=== PATIENT | male | born 2000 | race Caucasian/White ===

== ENCOUNTER 2020-07-20 13:40 | Emergency (ER) | payer OTHER, SELFPAY ==
[2020-07-20 13:58] VITALS: BP 143/88; PULSE 75; RESP 18; TEMP 37.1; O2SAT 100; BMI 33.0
--- NOTE | 2020-07-20 14:05 | XRR_ITS ---
PROCEDURE INFORMATION: Exam: XR Chest Exam date and time: 07/20/2020 2:29 PM Age: 20 years old Clinical indication: Pain; Chest pressure; Additional info: Chest pain TECHNIQUE: Imaging protocol: XR of the chest. Views: 1 view. COMPARISON: No relevant prior studies available. FINDINGS: Lungs: Unremarkable. No consolidation. Pleural spaces: Unremarkable. No pleural effusion. No pneumothorax. Heart/Mediastinum: Unremarkable. No cardiomegaly. Bones/joints: No acute findings. XR/XR chest 1V portable [id number] IMPRESSION: No acute findings.
--- NOTE | 2020-07-20 14:05 | ECG_ITS ---
[facility] Test Date: 2020-07-20 Pat Name: Wu Rodriguez Department: Room: Gender: Male Medical Clerical Assistant: : [id number] Requested By: Camron Cuello Order Number: [id number] Mathur MD: Zander Samuels M.D. Measurements Intervals [place] Rate: 75 P: 73 NE: 138 QRS: 75 QRSD: 135 T: 32 QT: 398 QTc: 446 Interpretive Statements SINUS RHYTHM RIGHT BUNDLE BRANCH BLOCK [120+ ms QRS DURATION, UPRIGHT V1, 40+ ms S IN I/aVL/V4/V5/V6] No previous ECG available for comparison Electronically Signed On 07-20-2020 21:00:55 CDT by Zander Samuels M.D. [email or web address] medical specialty [id number]
--- NOTE | 2020-07-20 14:07 | ED_ITS ---
Documented by User: Camron Cuello MD 07/20/20 17:33 HPI - Chest Pain General: Chief Complaint: Chest Pain Stated Complaint: CP; radiates up neck; weakness Time Seen by Provider: 07/20/20 14:03 Source: patient and RN notes reviewed Limitations: no limitations History of Present Illness: HPI narrative: This patient is a 20-year-old male who presents to the emergency department with complaint of he believes he is having chest pain/angina. Patient states is tight and heavy on the left chest and radiating to his left shoulder. Patient does have a history of GERD issues and ate pickles this morning. But thinks this pain is different. Patient denies any family history. Patient states does smoke. Will do medical evaluation treat as needed MD complaint: chest pain and chest discomfort Onset (ago): hour(s) Prior episodes: No Onset: during rest Pain location: left chest Pain radiation: left shoulder Quality: tightness, aching and heaviness Exacerbating factors: nothing Associated symptoms: Deny abdominal pain, dyspnea, fever(s), nausea, palpitations or vomiting Review of Systems General: Reports: 10 or more systems reviewed and unremarkable except in HPI and below Const: Denies: fever(s), chills, body aches or fatigue Eyes: Denies: change in vision or blurry vision ENMT: Denies: throat pain, hoarseness or mouth pain Card: Reports: chest pain; Denies: palpitations, irregular heart rhythm, edema, swelling of feet/ankles or lightheadedness Resp: Denies: dyspnea, productive cough, non-productive cough, wheezing or pain on inspiration GI: Denies: abdominal pain, nausea or vomiting : Denies: flank pain, dysuria, urinary frequency, urinary urgency or urinary hesitancy Musc: Denies: neck pain, back pain, extremity pain, extremity swelling, joint pain, joint swelling, joint redness, joint warmth or limited range of motion Skin/Breast: Denies: rash, pruritus, erythema or skin tenderness Neuro: Denies: headache(s), numbness in extremities or weakness in extremities Psych: Denies: anxiety or depression PFS ED PFSH: Social History Current gender identity: Male Physical Exam Const: COMMON NORMALS: no acute distress, average body habitus, patient oriented x3, no limitations, healthy appearing, alert and well nourished HENMT: COMMON NORMALS: normocephalic, atraumatic, hearing grossly normal bilaterally, external ears normal, EAC's normal, TM's normal bilaterally, Normal external nose present, Normal nasal mucous membranes and turbinates present, moist oral mucous membranes, oropharynx normal, dentition normal and gingiva normal HEAD & SCALP: normocephalic and atraumatic NOSE: Normal external nose present and Normal nasal mucous membranes and turbinates present EXTERNAL EAR: Yes external ears normal EXTERNAL AUDITORY CANAL: EAC's normal TYMPANIC MEMBRANE: TM's normal bilaterally Neck/C-Spine: COMMON NORMALS: full ROM, no lymphadenopathy, supple, no meningeal signs, no JVD, Thyroid normal and No carotid bruits THYROID: Thyroid normal Chest: COMMONS NORMALS: normal inspection of the chest, normal palpation of entire chest wall, normal inspection of the breasts and normal palpation of the breasts Breast/axilla inspection: Yes normal inspection of the breasts BREAST/AXILLA PALPATION: Yes normal palpation of the breasts Resp: COMMON NORMALS: normal respiratory effort, No retractions, No use of accessory muscles, clear to auscultation bilaterally and percussion normal AUSCULTATION: clear to auscultation bilaterally PERCUSSION: percussion normal Cardio: COMMON NORMALS: no JVD, regular rate, regular rhythm, S1 normal heart sound present, S2 normal heart sound present, No gallops present (Cardio), No clicks present (Cardio), No murmurs present (Cardio), No rub (Cardio) and Peripheral pulses 2+ throughout RATE: regular rate RHYTHM: regular rhythm HEART SOUNDS: S1 normal heart sound present and S2 normal heart sound present PERIPHERAL PULSES: Peripheral pulses 2+ throughout GI: COMMON NORMALS: Normal to inspection, nondistended, normoactive bowel sounds present, Soft to palpation, non-tender, No hepatosplenomegaly present, no masses and no bruits PALPATION: Yes Soft to palpation and Yes No hepatosplenomegaly present : COMMON NORMALS: Yes no CVA tenderness BLADDER/KIDNEY EXAM: Yes no CVA tenderness Back/Pelvis: COMMON NORMALS: no CVA tenderness, thoracic and lumbar spine normal to inspection, no thoracic nor lumbar tenderness, thoraco-lumbar ROM normal and straight leg raise negative bilaterally Extremity: COMMON NORMALS: normal to inspection, full ROM, capillary refill normal, no joint enlargement, no clubbing, cyanosis or edema, no calf tenderness and no pedal edema Neuro: COMMON NORMALS: patient oriented x3 SENSORIUM/ORIENTATION: Yes alert MENINGEAL SIGNS: Yes no meningeal signs Course Consultations: Consultation #1: Care will be transferred to Dr. Wilder for shift change Time: 17:33 Vital Signs: Vital signs: Vital Signs Temperature 98.7 F 07/20/20 13:58 Pulse Rate 87 07/20/20 19:00 Respiratory Rate 22 H 07/20/20 19:00 Blood Pressure 149/78 07/20/20 19:00 Pulse Oximetry 98 07/20/20 19:00 MDM - Chest Pain Lab Data: Labs: Lab Results 07/20/20 07/20/20 07/20/20 Range/Units 15:00 15:00 15:00 WBC 5.2 (4.5-13.0) 10^3/ uL RBC 4.62 (4.1-5.3) 10^6/u L Hgb 14.3 (11.7-16.6) g/dL Hct 41.7 L (42.0-52.0) % MCV 90.3 (80-94) fL MCH 31.0 (28.0-34.0) pg MCHC 34.3 (30.0-36.0) g/dL RDW 12.2 (12.1-15.1) % Plt Count 274 (130-400) 10^3/c mm MPV 10.0 (7.4-10.4) fL Neut % (Auto) 64.3 % Lymph % (Auto) 26.7 % Edmunds % (Auto) 7.1 % Eos % (Auto) 1.3 % Baso % (Auto) 0.4 % Neut # (Auto) 3.34 (1.8-8.0) 10^3/u L Lymph # (Auto) 1.4 L (1.5-6.5) 10^3/u L Edmunds # (Auto) 0.4 (0.2-0.9) 10^3/u L Eos # (Auto) 0.1 (0.0-0.8) 10^3/u L Baso # (Auto) 0.0 (0.0-0.1) 10^3/u L Nucleated RBC % (a uto) 0 % Nucleated RBCs # 0.0 /100WBC PT (12.1-14.9) SECO NDS INR (0.8-1.2) APTT (23.9-36.7) SECO NDS Sodium Cancelled Potassium Cancelled Chloride Cancelled Carbon Dioxide Cancelled Anion Gap Cancelled BUN Cancelled Creatinine Cancelled GFR Calculation Cancelled Glucose Cancelled Calculated Osmolal ity Cancelled Calcium Cancelled Troponin T Baselin e Cancelled NT-Pro-B Natriuret Pep Cancelled Urine Color (Yellow) Urine Appearance (CLEAR) Urine pH (5-7) Ur Specific Gravit y (1.005-1.030) Urine Protein (Negative) Urine Glucose (UA) (Normal) Urine Ketones (Negative) Urine Blood (Negative) Urine Nitrate (Negative) Urine Bilirubin (Negative) Urine Urobilinogen (Negative) mg/dL Ur Leukocyte Chio ase (Negative) Urine Opiates Scre en (Negative) ng/mL Ur Barbiturates Sc reen (Negative) ng/mL Ur Phencyclidine S crn (Negative) ng/mL Ur Amphetamines Sc reen (Negative) ng/mL U Benzodiazepines Scrn (Negative) ng/mL Urine Cocaine Scre en (Negative) ng/mL U Marijuana (THC) Screen (Negative) ng/mL 07/20/20 07/20/20 07/20/20 Range/Units 15:00 15:00 18:40 WBC (4.5-13.0) 10^3/ uL RBC (4.1-5.3) 10^6/u L Hgb (11.7-16.6) g/dL Hct (42.0-52.0) % MCV (80-94) fL MCH (28.0-34.0) pg MCHC (30.0-36.0) g/dL RDW (12.1-15.1) % Plt Count (130-400) 10^3/c mm MPV (7.4-10.4) fL Neut % (Auto) % Lymph % (Auto) % Edmunds % (Auto) % Eos % (Auto) % Baso % (Auto) % Neut # (Auto) (1.8-8.0) 10^3/u L Lymph # (Auto) (1.5-6.5) 10^3/u L Edmunds # (Auto) (0.2-0.9) 10^3/u L Eos # (Auto) (0.0-0.8) 10^3/u L Baso # (Auto) (0.0-0.1) 10^3/u L Nucleated RBC % (a uto) % Nucleated RBCs # /100WBC PT (12.1-14.9) SECO NDS INR (0.8-1.2) APTT (23.9-36.7) SECO NDS Sodium 136 Potassium 3.9 Chloride 102 Carbon Dioxide 16 L Anion Gap 21.9 H BUN 7 Creatinine 0.6 L GFR Calculation 171.8 H Glucose 77 Calculated Osmolal ity 279 L Calcium 8.6 Troponin T Baselin e NT-Pro-B Natriuret Pep 65 Urine Color Yellow (Yellow) Urine Appearance Clear (CLEAR) Urine pH 7 (5-7) Ur Specific Gravit y 1.010 (1.005-1.030) Urine Protein Neg (Negative) Urine Glucose (UA) Norm (Normal) Urine Ketones Negative (Negative) Urine Blood Neg (Negative) Urine Nitrate Negative (Negative) Urine Bilirubin Neg (Negative) Urine Urobilinogen Norm (Negative) mg/dL Ur Leukocyte Chio ase Negative (Negative) Urine Opiates Scre en Negative (Negative) ng/mL Ur Barbiturates Sc reen Negative (Negative) ng/mL Ur Phencyclidine S crn Negative (Negative) ng/mL Ur Amphetamines Sc reen Negative (Negative) ng/mL U Benzodiazepines Scrn Negative (Negative) ng/mL Urine Cocaine Scre en Negative (Negative) ng/mL U Marijuana (THC) Screen Positive H (Negative) ng/mL 07/20/20 07/20/20 Range/Units 19:19 19:20 WBC (4.5-13.0) 10^3/ uL RBC (4.1-5.3) 10^6/u L Hgb (11.7-16.6) g/dL Hct (42.0-52.0) % MCV (80-94) fL MCH (28.0-34.0) pg MCHC (30.0-36.0) g/dL RDW (12.1-15.1) % Plt Count (130-400) 10^3/c mm MPV (7.4-10.4) fL Neut % (Auto) % Lymph % (Auto) % Edmunds % (Auto) % Eos % (Auto) % Baso % (Auto) % Neut # (Auto) (1.8-8.0) 10^3/u L Lymph # (Auto) (1.5-6.5) 10^3/u L Edmunds # (Auto) (0.2-0.9) 10^3/u L Eos # (Auto) (0.0-0.8) 10^3/u L Baso # (Auto) (0.0-0.1) 10^3/u L Nucleated RBC % (a uto) % Nucleated RBCs # /100WBC PT 13.60 (12.1-14.9) SECO NDS INR 1.01 (0.8-1.2) APTT 24.6 (23.9-36.7) SECO NDS Sodium Potassium Chloride Carbon Dioxide Anion Gap BUN Creatinine GFR Calculation Glucose Calculated Osmolal ity Calcium Troponin T Baselin e 6 NT-Pro-B Natriuret Pep Urine Color (Yellow) Urine Appearance (CLEAR) Urine pH (5-7) Ur Specific Gravit y (1.005-1.030) Urine Protein (Negative) Urine Glucose (UA) (Normal) Urine Ketones (Negative) Urine Blood (Negative) Urine Nitrate (Negative) Urine Bilirubin (Negative) Urine Urobilinogen (Negative) mg/dL Ur Leukocyte Chio ase (Negative) Urine Opiates Scre en (Negative) ng/mL Ur Barbiturates Sc reen (Negative) ng/mL Ur Phencyclidine S crn (Negative) ng/mL Ur Amphetamines Sc reen (Negative) ng/mL U Benzodiazepines Scrn (Negative) ng/mL Urine Cocaine Scre en (Negative) ng/mL U Marijuana (THC) Screen (Negative) ng/mL Discharge Plan Discharge Patient Disposition: Home Clinical Impression: Atypical chest pain Condition: Stable Prescriptions: New Naprosyn 500 mg tablet 500 mg PO BID PRN (Reason: pain) Qty: 20 RF: 0 No Action hydroxyzine pamoate [Vistaril] 50 mg capsule 50 mg PO BID RF: 0 quetiapine 25 mg tablet 25 mg PO DAILY RF: 0 clonazepam 0.5 mg tablet 0.5 mg PO DAILY RF: 0 hydrocortisone 1 % Cream See Rx Instructions .ROUTE .COMPLEX RF: 0 duloxetine 60 mg capsule,delayed release(DR/EC) 60 mg PO DAILY RF: 0 epinephrine See Rx Instructions .ROUTE .COMPLEX RF: 0 trazodone 50 mg tablet 50 mg PO BEDTIME RF: 0 Discharge Orders: Discharge ED (Routine); Ordered 07/20/20 Ordered By: Wolfgang Contreras Referrals: Everett Rojo MD [Family Provider] - 1-3 days Discharge Diet: Advance as tolerated Discharge Activity: Use walker/crutches as instructed Patient Instructions: Chest Pain (ED) Coding Level of Care Code ED Patcher Bowling Ball for Chg Fwd Exam Comprehensive Documented by User: Wolfgang Contreras MD 07/20/20 20:07 HPI - Chest Pain General: Chief Complaint: Chest Pain Stated Complaint: CP; radiates up neck; weakness Time Seen by Provider: 07/20/20 14:03 [facility] ED PFSH: Social History Current gender identity: Male Course Vital Signs: Vital signs: Vital Signs Temperature 98.7 F 07/20/20 13:58 Pulse Rate 87 07/20/20 19:00 Respiratory Rate 22 H 07/20/20 19:00 Blood Pressure 149/78 07/20/20 19:00 Pulse Oximetry 98 07/20/20 19:00 MDM - Chest Pain MDM Narrative: Medical decision making narrative: Patient presents for chest pain is atypical in nature. His x-ray along with blood work troponin EKG are all normal. He has no signs of pulmonary embolus or acute coronary syndrome. Patient is stable for discharge and is to follow-up his PCP in 2 to 4 days return if worsening. Lab Data: Labs: Lab Results 07/20/20 07/20/20 07/20/20 Range/Units 15:00 15:00 15:00 WBC 5.2 (4.5-13.0) 10^3/ uL RBC 4.62 (4.1-5.3) 10^6/u L Hgb 14.3 (11.7-16.6) g/dL Hct 41.7 L (42.0-52.0) % MCV 90.3 (80-94) fL MCH 31.0 (28.0-34.0) pg MCHC 34.3 (30.0-36.0) g/dL RDW 12.2 (12.1-15.1) % Plt Count 274 (130-400) 10^3/c mm MPV 10.0 (7.4-10.4) fL Neut % (Auto) 64.3 % Lymph % (Auto) 26.7 % Edmunds % (Auto) 7.1 % Eos % (Auto) 1.3 % Baso % (Auto) 0.4 % Neut # (Auto) 3.34 (1.8-8.0) 10^3/u L Lymph # (Auto) 1.4 L (1.5-6.5) 10^3/u L Edmunds # (Auto) 0.4 (0.2-0.9) 10^3/u L Eos # (Auto) 0.1 (0.0-0.8) 10^3/u L Baso # (Auto) 0.0 (0.0-0.1) 10^3/u L Nucleated RBC % (a uto) 0 % Nucleated RBCs # 0.0 /100WBC PT (12.1-14.9) SECO NDS INR (0.8-1.2) APTT (23.9-36.7) SECO NDS Sodium Cancelled Potassium Cancelled Chloride Cancelled Carbon Dioxide Cancelled Anion Gap Cancelled BUN Cancelled Creatinine Cancelled GFR Calculation Cancelled Glucose Cancelled Calculated Osmolal ity Cancelled Calcium Cancelled Troponin T Baselin e Cancelled NT-Pro-B Natriuret Pep Cancelled Urine Color (Yellow) Urine Appearance (CLEAR) Urine pH (5-7) Ur Specific Gravit y (1.005-1.030) Urine Protein (Negative) Urine Glucose (UA) (Normal) Urine Ketones (Negative) Urine Blood (Negative) Urine Nitrate (Negative) Urine Bilirubin (Negative) Urine Urobilinogen (Negative) mg/dL Ur Leukocyte Chio ase (Negative) Urine Opiates Scre en (Negative) ng/mL Ur Barbiturates Sc reen (Negative) ng/mL Ur Phencyclidine S crn (Negative) ng/mL Ur Amphetamines Sc reen (Negative) ng/mL U Benzodiazepines Scrn (Negative) ng/mL Urine Cocaine Scre en (Negative) ng/mL U Marijuana (THC) Screen (Negative) ng/mL 07/20/20 07/20/20 07/20/20 Range/Units 15:00 15:00 18:40 WBC (4.5-13.0) 10^3/ uL RBC (4.1-5.3) 10^6/u L Hgb (11.7-16.6) g/dL Hct (42.0-52.0) % MCV (80-94) fL MCH (28.0-34.0) pg MCHC (30.0-36.0) g/dL RDW (12.1-15.1) % Plt Count (130-400) 10^3/c mm MPV (7.4-10.4) fL Neut % (Auto) % Lymph % (Auto) % Edmunds % (Auto) % Eos % (Auto) % Baso % (Auto) % Neut # (Auto) (1.8-8.0) 10^3/u L Lymph # (Auto) (1.5-6.5) 10^3/u L Edmunds # (Auto) (0.2-0.9) 10^3/u L Eos # (Auto) (0.0-0.8) 10^3/u L Baso # (Auto) (0.0-0.1) 10^3/u L Nucleated RBC % (a uto) % Nucleated RBCs # /100WBC PT (12.1-14.9) SECO NDS INR (0.8-1.2) APTT (23.9-36.7) SECO NDS Sodium 136 Potassium 3.9 Chloride 102 Carbon Dioxide 16 L Anion Gap 21.9 H BUN 7 Creatinine 0.6 L GFR Calculation 171.8 H Glucose 77 Calculated Osmolal ity 279 L Calcium 8.6 Troponin T Baselin e NT-Pro-B Natriuret Pep 65 Urine Color Yellow (Yellow) Urine Appearance Clear (CLEAR) Urine pH 7 (5-7) Ur Specific Gravit y 1.010 (1.005-1.030) Urine Protein Neg (Negative) Urine Glucose (UA) Norm (Normal) Urine Ketones Negative (Negative) Urine Blood Neg (Negative) Urine Nitrate Negative (Negative) Urine Bilirubin Neg (Negative) Urine Urobilinogen Norm (Negative) mg/dL Ur Leukocyte Chio ase Negative (Negative) Urine Opiates Scre en Negative (Negative) ng/mL Ur Barbiturates Sc reen Negative (Negative) ng/mL Ur Phencyclidine S crn Negative (Negative) ng/mL Ur Amphetamines Sc reen Negative (Negative) ng/mL U Benzodiazepines Scrn Negative (Negative) ng/mL Urine Cocaine Scre en Negative (Negative) ng/mL U Marijuana (THC) Screen Positive H (Negative) ng/mL 07/20/20 07/20/20 Range/Units 19:19 19:20 WBC (4.5-13.0) 10^3/ uL RBC (4.1-5.3) 10^6/u L Hgb (11.7-16.6) g/dL Hct (42.0-52.0) % MCV (80-94) fL MCH (28.0-34.0) pg MCHC (30.0-36.0) g/dL RDW (12.1-15.1) % Plt Count (130-400) 10^3/c mm MPV (7.4-10.4) fL Neut % (Auto) % Lymph % (Auto) % Edmunds % (Auto) % Eos % (Auto) % Baso % (Auto) % Neut # (Auto) (1.8-8.0) 10^3/u L Lymph # (Auto) (1.5-6.5) 10^3/u L Edmunds # (Auto) (0.2-0.9) 10^3/u L Eos # (Auto) (0.0-0.8) 10^3/u L Baso # (Auto) (0.0-0.1) 10^3/u L Nucleated RBC % (a uto) % Nucleated RBCs # /100WBC PT 13.60 (12.1-14.9) SECO NDS INR 1.01 (0.8-1.2) APTT 24.6 (23.9-36.7) SECO NDS Sodium Potassium Chloride Carbon Dioxide Anion Gap BUN Creatinine GFR Calculation Glucose Calculated Osmolal ity Calcium Troponin T Baselin e 6 NT-Pro-B Natriuret Pep Urine Color (Yellow) Urine Appearance (CLEAR) Urine pH (5-7) Ur Specific Gravit y (1.005-1.030) Urine Protein (Negative) Urine Glucose (UA) (Normal) Urine Ketones (Negative) Urine Blood (Negative) Urine Nitrate (Negative) Urine Bilirubin (Negative) Urine Urobilinogen (Negative) mg/dL Ur Leukocyte Chio ase (Negative) Urine Opiates Scre en (Negative) ng/mL Ur Barbiturates Sc reen (Negative) ng/mL Ur Phencyclidine S crn (Negative) ng/mL Ur Amphetamines Sc reen (Negative) ng/mL U Benzodiazepines Scrn (Negative) ng/mL Urine Cocaine Scre en (Negative) ng/mL U Marijuana (THC) Screen (Negative) ng/mL EKG Data^: EKG 1: Attestation: I personally reviewed and interpreted this EKG as follows: EKG interpretation date: 07/20/20 EKG interpretation time: 17:57 Interpretation: nsr hr [address] or t wave abnormalities qrs 135 qtc 427 Discharge Plan Discharge Patient Disposition: Home Clinical Impression: Atypical chest pain Condition: Stable Prescriptions: New Naprosyn 500 mg tablet 500 mg PO BID PRN (Reason: pain) Qty: 20 RF: 0 No Action hydroxyzine pamoate [Vistaril] 50 mg capsule 50 mg PO BID RF: 0 quetiapine 25 mg tablet 25 mg PO DAILY RF: 0 clonazepam 0.5 mg tablet 0.5 mg PO DAILY RF: 0 hydrocortisone 1 % Cream See Rx Instructions .ROUTE .COMPLEX RF: 0 duloxetine 60 mg capsule,delayed release(DR/EC) 60 mg PO DAILY RF: 0 epinephrine See Rx Instructions .ROUTE .COMPLEX RF: 0 trazodone 50 mg tablet 50 mg PO BEDTIME RF: 0 Discharge Orders: Discharge ED (Routine); Ordered 07/20/20 Ordered By: Wolfgang Contreras Referrals: Everett Rojo MD [Family Provider] - 1-3 days Discharge Diet: Advance as tolerated Discharge Activity: Use walker/crutches as instructed Patient Instructions: Chest Pain (ED) Coding Level of Care Code ED Patcher Bowling Ball for Chg Fwd Exam Comprehensive
[2020-07-20] MEDS: ondansetron 2 mg/ML SDV 2 mL 4 MG IVP (14:44)
[2020-07-20] MEDS: sodium chloride 0.9% 500 ML 999 ML IV (14:45)
[2020-07-20] MEDS: lidocaine 2% viscous 15 ML, aluminum-mag hydrox-simethicon 30 ML, sucralfate oral liq 1 GM PO (14:46)
[2020-07-20 15:22] LABS: Add Urine Microscopic? NO; Charge for UA Resulting for Rev
[2020-07-20 15:25] LABS: Basophils % 0.4 %; Eosinophils # 0.1 10^3/uL (0.0-0.8); Eosinophils % 1.3 %; Hematocrit 41.7 % (42.0-52.0); Hemoglobin 14.3 g/dL (11.7-16.6); Lymphocytes # 1.4 10^3/uL (1.5-6.5); Lymphocytes % 26.7 %; Mean Corpuscular HGB Conc 34.3 g/dL (30.0-36.0); Mean Corpuscular Volume 90.3 fL (80-94); Monocytes # 0.4 10^3/uL (0.2-0.9); Monocytes % 7.1 %; Neutrophils # 3.34 10^3/uL (1.8-8.0); Neutrophils % 64.3 %; Nucleated Red Blood Cells % 0 %; Platelet Count 274 10^3/cmm (130-400); Red Blood Count 4.62 10^6/uL (4.1-5.3); Red Cell Distribution Width 12.2 % (12.1-15.1); White Blood Count 5.2 10^3/uL (4.5-13.0)
[2020-07-20 15:48] LABS: Amphetamines Screen Urine Negative (Negative); Barbiturates Screen Urine Negative (Negative); Benzodiazepines Screen Urine Negative (Negative); Cocaine Screen Urine Negative (Negative); Opiate Screen Urine Negative (Negative); PCP Screen Urine Negative (Negative); THC Screen Urine Positive (Negative)
[2020-07-20 15:52] LABS: Bilirubin Urine Neg (Negative); Blood Urine Neg (Negative); Glucose Urine UA Norm (Normal); Ketones Urine Negative (Negative); Leukocyte Esterase Urine Negative (Negative); Nitrate Urine Negative (Negative); Protein Urine Neg (Negative); Urine Appearance Clear (CLEAR); Urine Color Yellow (Yellow); Urobilinogen Urine Norm (Negative); pH Urine 7 (5-7)
[2020-07-20 18:19] VITALS: BP 160/102; PULSE 98; RESP 20; O2SAT 97
[2020-07-20 19:00] VITALS: BP 149/78; PULSE 87; RESP 22; O2SAT 98
[2020-07-20 19:28] LABS: INR 1.01 (0.8-1.2); Partial Thromboplastin Time 24.6 SECONDS (23.9-36.7)
[2020-07-20 19:42] LABS: Troponin(5th) Baseline 6 ng/L (0-15)
[2020-07-20 19:54] LABS: Blood Urea Nitrogen 7 mg/dL (6-20); Calcium 8.6 mg/dL (8.5-10.5); Carbon Dioxide 16 mmol/L (22-29); Chloride 102 mmol/L (98-107); Glomerular Filtration Rate 171.8 mL/min (90-130); Glucose 77 mg/dL (65-115); NT Pro B Type Natriuretic Pept 65 pg/mL (0-125); Osmolality Calculated 279 mOsm/kg (285-295); Sodium 136 mmol/L (136-145)
[2020-07-20 20:00] LABS: Anion Gap 21.9 (5-19); Potassium 3.9 mmol/L (3.5-5.1)
[2020-07-20 20:38] VITALS: BP 145/71; PULSE 90; RESP 17; O2SAT 99
== END 2020-07-20 20:35 | disposition home or self-care (01) ==
PROVIDERS: Emergency Medicine; Emergency Provider Emergency Medicine; Family Provider Family Medicine
DX: R07.89 Other chest pain (principal)
CPT/HCPCS: 71045; 80048; 80306; 81003; 83880; 84484; 85025; 85610; 85730; 93005; 96374; 99284; J2405; J7040

== ENCOUNTER 2020-08-20 08:22 | Emergency (ER) | payer OTHER, SELFPAY ==
--- NOTE | 2020-08-20 08:25 | CT_ITS ---
WS: [id number] CT ABDOMEN AND PELVIS NONCONTRAST HISTORY: flank pain TECHNIQUE: Imaging performed through the abdomen and pelvis. Coronal and sagittal reformats are submi tted. All CT scans at [facility] use at least one of these dose optimization techniques: automated exposure control; mA and/or kV adjustment per patient size (includes targeted exams where d ose is matched to clinical indication); or iterative reconstruction. DLP: 2134.99 mGy.cm COMPARISON: 10/18/2015 Quality of this examination is limited by motion. Lower thorax: Mild haziness and groundglass attenuation at the lung bases without a focal consolidati on. Heart appears mildly prominent. Liver: Normal size liver. No mass or bile duct dilatation. Gallbladder: Normal gallbladder. Pancreas: Normal size and attenuation. Normal pancreatic duct. No pancreatitis or mass. Spleen: Normal. Adrenal glands: Normal. No mass. Right kidney: Normal size kidney with no mass or hydronephrosis. Left kidney: Mildly enlarged LEFT kidney with mild LEFT hydroureteronephrosis secondary to a 4 mm radha cification at the UV junction. This calcification is nearly extruded into the bladder. Aorta: Normal abdominal aorta, no aneurysm or atherosclerosis. No free fluid, intraperitoneal air or significant lymphadenopathy. GI tract: The appendix is not identified and may have been removed. No obstruction. Abdominal wall: Negative. No hernia. Pelvis: Normally distended urinary bladder. 4 mm calcification is noted at the LEFT UV junction. Osseous structures: Unremarkable. CT/CT kidney stone [id number] IMPRESSION: 1. Mild LEFT hydroureteronephrosis secondary to 4 mm calcification at the UV j unction. 2. Appendix not identified. Likely prior appendectomy. 3. Study compromised by motion artifact.
[2020-08-20 08:47] VITALS: PULSE 79; RESP 22; TEMP 37; O2SAT 99; BMI 31.5
[2020-08-20 08:56] VITALS: BP 141/75; PULSE 70; RESP 18; O2SAT 100
[2020-08-20] MEDS: sodium chloride 0.9% 1,000 ML 999 ML IV (09:00)
[2020-08-20] MEDS: ketorolac 30 mg/mL INJ IVP (09:00)
[2020-08-20] MEDS: ondansetron 2 mg/ML SDV 2 mL 4 MG IVP (09:00)
[2020-08-20 09:08] LABS: Basophils % 0.5 %; Eosinophils # 0.1 10^3/uL (0.0-0.8); Eosinophils % 1.4 %; Hematocrit 43.5 % (42.0-52.0); Hemoglobin 15.3 g/dL (11.7-16.6); Lymphocytes # 1.6 10^3/uL (1.5-6.5); Mean Corpuscular HGB Conc 35.2 g/dL (30.0-36.0); Mean Corpuscular Hemoglobin 30.9 pg (28.0-34.0); Mean Corpuscular Volume 87.9 fL (80-94); Mean Platelet Volume 10.1 fL (7.4-10.4); Monocytes # 0.4 10^3/uL (0.2-0.9); Monocytes % 9.5 %; Neutrophils # 2.23 10^3/uL (1.8-8.0); Neutrophils % 51.4 %; Nucleated Red Blood Cells % 0 %; Platelet Count 255 10^3/cmm (130-400); Red Blood Count 4.95 10^6/uL (4.1-5.3); Red Cell Distribution Width 11.5 % (12.1-15.1); White Blood Count 4.3 10^3/uL (4.5-13.0)
--- NOTE | 2020-08-20 09:18 | W.ED.MALEGU ---
HPI - Male Genitourinary General: Chief complaint: Urogenital-Male Stated complaint: back pain,possible kidney stone Time Seen by Provider: 08/20/20 08:24 Source: patient Mode of arrival: wheelchair Limitations: no limitations History of Present Illness: HPI Narrative: 20 yo male patient presents to ER screaming in pain. Pt states he is having sharp stabbing pains to left flank area. Pt denies fever. Pt c/o nausea with no vomiting. Pt denies history of kidney stones pt has had appendectomy. Associated symptoms: Reports nausea; Deny dysuria, hematuria or vomiting Review of Systems Const: Denies: fever(s), chills, body aches, change in appetite, change in weight, fatigue, malaise or diaphoresis Eyes: Denies: change in vision, blurry vision, blind spots, photophobia, eye discomfort, eye discharge, eye redness, floaters or seeing flashes ENMT: Denies: throat pain, uvular edema, enlarged tonsils, odynophagia, hoarseness, mouth pain, swelling of lips/tongue, oral sores, bleeding gums, dental pain, dry mouth, ear or mastoid pain, ear discharge, change in hearing, tinnitus, disequilibrium, nasal discharge, nasal congestion, post nasal drip or sinus pain Card: Denies: chest pain, palpitations, irregular heart rhythm, edema, swelling of feet/ankles, lightheadedness, syncope, pre-syncope, dyspnea on exertion, orthopnea, leg pain with exertion or acrocyanosis Resp: Denies: dyspnea, productive cough, non-productive cough, wheezing, stridor, pain on inspiration, change in phlegm color, hemoptysis or chest congestion GI: Reports: nausea; Denies: abdominal pain, vomiting, hematemesis, dysphagia, diarrhea, constipation, GI cramping, change in bowel habits or rectal pain : Reports: flank pain; Denies: dysuria, urinary frequency, urinary urgency, urinary hesitancy or hematuria Musc: Denies: neck pain, back pain, extremity pain, extremity swelling, joint pain, joint swelling, joint redness, joint warmth or deformity Skin/Breast: Denies: rash, pruritus, erythema, sores, new lesions, changes in skin color or dry skin Neuro: Denies: headache(s), numbness in extremities, weakness in extremities, sensory changes, lack of coordination, difficulty walking, frequent falls, dizziness, vertigo, confusion, behavioral changes, Slurred speech present, difficulty communicating thoughts or seizure-like activity Psych: Denies: anxiety, depression, suicidal ideation or homicidal ideation Endo: Denies: polyuria, polydipsia, tired all the time, cold intolerance, excessive sweating, flushing, hot flashes or heat intolerance Bharathi/Lymph: Denies: easy bruising, easy bleeding, petechiae, purpura, enlarged lymph nodes or tender lymph nodes All/Imm: Denies: urticaria, throat swelling, tongue swelling, facial swelling, acute wheezing or itchy eyes PFSH ED PFSH: Social History Current gender identity: Male Physical Exam Const: COMMON NORMALS: no acute distress, patient oriented x3, healthy appearing, alert and well nourished GENERAL APPEARANCE: cooperative, comfortable, well kempt and well developed; not ill appearing ORIENTATION/CONSCIOUSNESS: Yes awake, Yes oriented to person, Yes oriented to place and Yes oriented to time HENMT: COMMON NORMALS: normocephalic, atraumatic, hearing grossly normal bilaterally, external ears normal, EAC's normal, TM's normal bilaterally, Normal external nose present, Normal nasal mucous membranes and turbinates present and moist oral mucous membranes HEAD & SCALP: normal to inspection, normocephalic and atraumatic FACE & SINUS: normal facial exam, sinuses nontender and face symmetric NOSE: Normal external nose present, Normal nares present, Normal nasal mucous membranes and turbinates present, No nasal discharge present and Abnormal external nose present EXTERNAL EAR: Yes external ears normal and Yes mastoids normal EXTERNAL AUDITORY CANAL: EAC's normal TYMPANIC MEMBRANE: TM's normal bilaterally MOUTH: Normal oral and palatal mucosa present, lip normal, tongue normal and Normal salivary glands and ducts present THROAT: no uvular edema Eye: COMMON NORMALS: Equal, round and reactive pupils present, EOMs intact bilaterally, conjunctivae normal, no scleral icterus and no papilledema GENERAL EYE: appearance normal, both eyes and all related structures EYELID: eyelids normal CONJUNCTIVA: Yes conjunctivae normal SCLERA: sclerae normal CORNEA: Yes corneas normal PUPIL: Yes Equal, round and reactive pupils present DIRECT OPHTHALMOSCOPY: Yes no papilledema Neck/C-Spine: COMMON NORMALS: full ROM, no lymphadenopathy, supple, no meningeal signs, no JVD and Thyroid normal GENERAL: Yes normal visual inspection and Yes trachea midline THYROID: Thyroid normal CERVICAL SPINE: Yes cervical ROM normal Lymph: LYMPHATIC: no lymphadenopathy noted and no lymphedema noted Chest: COMMONS NORMALS: normal inspection of the chest and normal palpation of entire chest wall Resp: COMMON NORMALS: normal respiratory effort, No retractions, No use of accessory muscles and clear to auscultation bilaterally EFFORT & INSPECTION: Yes able to speak in complete sentences and Yes symmetric chest movement AUSCULTATION: clear to auscultation bilaterally Cardio: COMMON NORMALS: no JVD, regular rate and regular rhythm RATE: regular rate RHYTHM: regular rhythm GI: COMMON NORMALS: Normal to inspection, nondistended, normoactive bowel sounds present, Soft to palpation, non-tender, No hepatosplenomegaly present, no masses and no bruits INSPECTION: Yes normal to inspection AUSCULTATION: Yes normoactive bowel sounds PALPATION: Yes Soft to palpation and Yes No hepatosplenomegaly present PERCUSSION: normal to percussion RECTAL EXAM: Yes deferred : COMMON NORMALS: Yes no CVA tenderness BLADDER/KIDNEY EXAM: Yes no CVA tenderness Back/Pelvis: COMMON NORMALS: no CVA tenderness, thoracic and lumbar spine normal to inspection, no thoracic nor lumbar tenderness, thoraco-lumbar ROM normal and straight leg raise negative bilaterally THORACIC SPINE/UPPER BACK: Yes normal to inspection LUMBAR SPINE/LOWER BACK: Yes normal to inspection Extremity: COMMON NORMALS: normal to inspection, full ROM and capillary refill normal GENERAL: Yes normal exam except as noted Neuro: COMMON NORMALS: patient oriented x3, CN's II-XII intact bilaterally, moves all extremities, no focal motor deficits, no sensory deficits noted, deep tendon reflexes 2+ bilaterally and gait normal SENSORIUM/ORIENTATION: Yes alert, Yes oriented to person, Yes oriented to place and Yes oriented to time MENINGEAL SIGNS: Yes no meningeal signs CRANIAL NERVES: Yes CN normal except as noted SPEECH: speech normal GAIT: Yes Normal gait present SENSORY EXAM: Yes extremities Psych: COMMON NORMALS: mental status grossly normal, Normal thought process present, cooperative, normal affect, speech normal, activity/motor behavior normal, denies hallucinations, denies homicidal ideation and denies suicidal ideation APPEARANCE: Yes grossly normal and Yes well kempt ATTITUDE: Yes calm ACTIVITY/MOTOR BEHAVIOR: Yes appropriate eye contact SPEECH: Yes normal speech THOUGHT PROCESS: Normal thought process present THOUGHT CONTENT: Yes Normal thought content present ATTENTION/CONCENTRATION: Yes attention grossly intact MEMORY/COGNITION: Yes memory grossly intact INSIGHT: Good insight present (Psych) JUDGEMENT: Good judgement present (Psych) Skin: COMMON NORMALS: no rashes or lesions noted, no wounds, turgor normal, no jaundice, no petechiae and no mottling GENERAL SKIN EXAM: no rashes or lesions noted and turgor normal Course Vital Signs: Vital signs: Vital Signs Temperature 98.6 F 08/20/20 08:47 Pulse Rate 79 08/20/20 10:01 Respiratory Rate 17 08/20/20 10:01 Blood Pressure 113/56 08/20/20 10:01 Pulse Oximetry 99 08/20/20 10:01 MDM - Male MDM Narrative: Medical decision making narrative: Pt is well appearing non toxic and is screaming in pain at triage. CT abd pelvis reveals CT ABDOMEN AND PELVIS NONCONTRAST HISTORY: flank pain TECHNIQUE: Imaging performed through the abdomen and pelvis. Coronal and sagittal reformats are submitted. All CT scans at [facility] use at least one of these dose optimization techniques: automated exposure control; mA and/or kV adjustment per patient size (includes targeted exams where dose is matched to clinical indication); or iterative reconstruction. DLP: 2134.99 mGy.cm COMPARISON: 10/18/2015 Quality of this examination is limited by motion. Lower thorax: Mild haziness and groundglass attenuation at the lung bases without a focal consolidation. Heart appears mildly prominent. Liver: Normal size liver. No mass or bile duct dilatation. Gallbladder: Normal gallbladder. Pancreas: Normal size and attenuation. Normal pancreatic duct. No pancreatitis or mass. Spleen: Normal. Adrenal glands: Normal. No mass. Right kidney: Normal size kidney with no mass or hydronephrosis. Left kidney: Mildly enlarged LEFT kidney with mild LEFT hydroureteronephrosis secondary to a 4 mm calcification at the UV junction. This calcification is nearly extruded into the bladder. Aorta: Normal abdominal aorta, no aneurysm or atherosclerosis. No free fluid, intraperitoneal air or significant lymphadenopathy. GI tract: The appendix is not identified and may have been removed. No obstruction. Abdominal wall: Negative. No hernia. Pelvis: Normally distended urinary bladder. 4 mm calcification is noted at the LEFT UV junction. Osseous structures: Unremarkable. CT/CT kidney stone [id number] IMPRESSION: 1. Mild LEFT hydroureteronephrosis secondary to 4 mm calcification at the UV junction. 2. Appendix not identified. Likely prior appendectomy. 3. Study compromised by motion artifact. Pt was given Toradol and Zofran and had clinical improvement. Pt was given 1 liter of NS IV. Labs reveal no concerning findings. I will plan on sending patient home with short course of pain meds and antimetic and have follow up with Urology. Return precautions advised home care reviewed. Pt is tolerating food and po fluids. Lab Data: Labs: Lab Results 08/20/20 08/20/20 08/20/20 Range/Units 08:53 08:53 09:55 WBC 4.3 L (4.5-13.0) 10^3/ uL RBC 4.95 (4.1-5.3) 10^6/u L Hgb 15.3 (11.7-16.6) g/dL Hct 43.5 (42.0-52.0) % MCV 87.9 (80-94) fL MCH 30.9 (28.0-34.0) pg MCHC 35.2 (30.0-36.0) g/dL RDW 11.5 L (12.1-15.1) % Plt Count 255 (130-400) 10^3/c mm MPV 10.1 (7.4-10.4) fL Neut % (Auto) 51.4 % Lymph % (Auto) 37.0 % [place] % (Auto) 9.5 % Eos % (Auto) 1.4 % Baso % (Auto) 0.5 % Neut # (Auto) 2.23 (1.8-8.0) 10^3/u L Lymph # (Auto) 1.6 (1.5-6.5) 10^3/u L [place] # (Auto) 0.4 (0.2-0.9) 10^3/u L Eos # (Auto) 0.1 (0.0-0.8) 10^3/u L Baso # (Auto) 0.0 (0.0-0.1) 10^3/u L Nucleated RBC % (a uto) 0 % Nucleated RBCs # 0.0 /100WBC Sodium 139 (136-145) mmol/L Potassium 4.0 (3.5-5.1) mmol/L Chloride 103 (98-107) mmol/L Carbon Dioxide 23 (22-29) mmol/L Anion Gap 17.0 (5-19) BUN 10 (6-20) mg/dL Creatinine 1.0 (0.7-1.2) mg/dL GFR Calculation 95.3 (90-130) mL/min Glucose 117 H (65-115) mg/dL Calculated Osmolal ity 288 (285-295) mOsm/k g Calcium 9.4 (8.5-10.5) mg/dL Total Bilirubin 0.9 (0.15-1.2) mg/dL AST 28 (0-40) U/L ALT 35 (0-41) U/L Alkaline Phosphata se 81 (40-130) IU/L Total Protein 7.4 (6.6-8.7) g/dL Albumin 4.6 (3.5-5.2) g/dL Globulin 2.8 (1.3-4.6) g/dL Urine Color Brown (Yellow) Urine Appearance Cloudy (CLEAR) Urine pH 8 H (5-7) Ur Specific Gravit y 1.015 (1.005-1.030) Urine Protein 1+ H (Negative) Urine Glucose (UA) Norm (Normal) Urine Ketones 1+ H (Negative) Urine Blood 3+ H (Negative) Urine Nitrate Negative (Negative) Urine Bilirubin Neg (Negative) Prot Sulfosalicyli c Acd Positive (Negative) Urine Urobilinogen Norm (Negative) mg/dL Ur Leukocyte [place] ase Negative (Negative) Urine RBC >100 H (0-2) /hpf Urine WBC None (0-5) /hpf Ur Squamous Epith Cells 0-4 H (0-5) /hpf Amorphous Sediment Not Reportable Urine Bacteria 2+ H (NONE) /hpf Discharge Plan Discharge Patient Disposition: Home Clinical Impression: Kidney stone on left side Condition: Stable Prescriptions: New hydrocodone-acetaminophen 5-325 mg tablet 1 tab PO Q6H PRN (Reason: pain) Qty: 14 RF: 0 Zofran 4 mg tablet 4 mg PO TID 3 Days Qty: 9 RF: 0 No Action hydroxyzine pamoate [Vistaril] 50 mg capsule 50 mg PO BID RF: 0 quetiapine 25 mg tablet 25 mg PO DAILY RF: 0 clonazepam 0.5 mg tablet 0.5 mg PO DAILY RF: 0 hydrocortisone 1 % Cream See Rx Instructions .ROUTE .COMPLEX RF: 0 duloxetine 60 mg capsule,delayed release(DR/EC) 60 mg PO DAILY RF: 0 epinephrine See Rx Instructions .ROUTE .COMPLEX RF: 0 trazodone 50 mg tablet 50 mg PO BEDTIME RF: 0 Naprosyn 500 mg tablet 500 mg PO BID PRN (Reason: pain) Qty: 20 RF: 0 Discharge Orders: Discharge ED (Routine); Ordered 08/20/20 Ordered By: Ngoc Syed Referrals: Rom Mathew MD [Physician] - (Please follow up in 2-3 days) Everett Rojo MD [Primary Care Provider] - Patient Instructions: Kidney Stones (ED), Opioid Safety Activity Restrictions/Additional Instructions: Return to ER if ontact your healthcare provider if: You have a fever. You have trouble passing urine. You see blood in your urine. You have severe pain. You have any questions or concerns about your condition or care. Take meds as directed Please do not drive or operate heavy machinery while taking Hydrocodone Coding Level of Care Code ED Chemistry Physics Teacher for Jorge Coley
[2020-08-20 09:33] LABS: Alanine Aminotransferase 35 U/L (0-41); Albumin Level 4.6 g/dL (3.5-5.2); Alkaline Phosphatase 81 IU/L (40-130); Aspartate Amino Transferase 28 U/L (0-40); Blood Urea Nitrogen 10 mg/dL (6-20); Calcium 9.4 mg/dL (8.5-10.5); Carbon Dioxide 23 mmol/L (22-29); Chloride 103 mmol/L (98-107); Creatinine Clr Calc Pharmacy 152.1727; Globulin 2.8 g/dL (1.3-4.6); Glomerular Filtration Rate 95.3 mL/min (90-130); Glucose 117 mg/dL (65-115); Osmolality Calculated 288 mOsm/kg (285-295); Sodium 139 mmol/L (136-145); Total Bilirubin 0.9 mg/dL (0.15-1.2); Total Protein 7.4 g/dL (6.6-8.7)
[2020-08-20 10:01] VITALS: BP 113/56; PULSE 79; RESP 17; O2SAT 99
[2020-08-20 10:13] LABS: Urine Appearance Cloudy (CLEAR); Urine Color Brown (Yellow)
[2020-08-20 10:14] LABS: Bilirubin Urine Neg (Negative); Blood Urine 3+ (Negative); Glucose Urine UA Norm (Normal); Ketones Urine 1+ (Negative); Leukocyte Esterase Urine Negative (Negative); Nitrate Urine Negative (Negative); Protein Urine 1+ (Negative); Specific Gravity, Urine 1.015 (1.005-1.030); Urobilinogen Urine Norm (Negative); pH Urine 8 (5-7)
[2020-08-20 10:15] LABS: Add Urine Microscopic? YES; Sulfosalicylic Acid Urine Positive (Negative)
[2020-08-20 10:16] LABS: Bacteria Urine 2+ /hpf; RBC Urine >100 /hpf (0-2); Squamous Epithelial Cell Urine 0-4 /hpf (0-5)
[2020-08-20 10:18] LABS: Add Urine Culture? Yes
[2020-08-20 11:15] VITALS: BP 113/56; PULSE 79; RESP 17; TEMP 37.1; O2SAT 98
== END 2020-08-20 11:17 | disposition home or self-care (01) ==
PROVIDERS: Emergency Provider Registered Nurse; PCP Family Medicine
DX: N20.0 Calculus of kidney (principal)
CPT/HCPCS: 74176; 80053; 81001; 85025; 87086; 96361; 96374; 96375; 99284; J1885; J2405; J7030

== ENCOUNTER 2021-01-17 20:51 | Inpatient (IN) | payer OTHER, SELFPAY ==
[2021-01-17 20:52] VITALS: BP 135/69; PULSE 104; RESP 18; TEMP 37.1; O2SAT 90; BMI 29.2
[2021-01-17 21:03] VITALS: BP 136/89; PULSE 104; RESP 18; O2SAT 92
--- NOTE | 2021-01-17 21:05 | XRR_ITS ---
PROCEDURE INFORMATION: Exam: XR Chest Exam date and time: 01/17/2021 9:05 PM Age: 20 years old Clinical indication: Dyspnea TECHNIQUE: Imaging protocol: XR of the chest. Views: 1 view. COMPARISON: CR XR chest 1V portable [id number] 07/20/2020 2:25 PM FINDINGS: The lungs are clear of infiltrate. There are no pleural effusions or pneumothorax. The heart size and pulmonary vascularity are normal. XR/XR chest 1V portable [id number] IMPRESSION: No active disease. Radiation Dose CTDIVOL = (mGy): DLP = (mGy-cm)
[2021-01-17 22:12] LABS: Basophils % 0.3 %; Eosinophils # 0.1 10^3/uL (0.0-0.8); Eosinophils % 0.4 %; Hematocrit 40.9 % (42.0-52.0); Hemoglobin 14.6 g/dL (11.7-16.6); Lymphocytes # 1.1 10^3/uL (1.5-6.5); Lymphocytes % 7.3 %; Mean Corpuscular HGB Conc 35.7 g/dL (30.0-36.0); Mean Corpuscular Hemoglobin 31.1 pg (28.0-34.0); Mean Platelet Volume 10.1 fL (7.4-10.4); Monocytes # 0.7 10^3/uL (0.2-0.9); Monocytes % 4.5 %; Neutrophils # 13.46 10^3/uL (1.8-8.0); Nucleated Red Blood Cells % 0 %; Platelet Count 268 10^3/cmm (130-400); White Blood Count 15.7 10^3/uL (4.5-13.0)
[2021-01-17 22:27] LABS: Anion Gap 20.5 (5-19); Blood Urea Nitrogen 17 mg/dL (6-20); Calcium 8.5 mg/dL (8.5-10.5); Carbon Dioxide 22 mmol/L (22-29); Chloride 96 mmol/L (98-107); Glomerular Filtration Rate 85.3 mL/min (90-130); Glucose 153 mg/dL (65-115); Osmolality Calculated 285 mOsm/kg (285-295); Potassium 3.5 mmol/L (3.5-5.1); Sodium 135 mmol/L (136-145)
--- NOTE | 2021-01-17 22:27 | W.ED.GENADLT ---
HPI - General Adult General: Chief complaint: Overdose Stated complaint: ACCIDENTAL OVERDOSE Time Seen by Provider: 01/17/21 20:55 History of Present Illness: HPI narrative: Patient is a 20-year-old male with a history of opiate use who presents emergency room after after he was found down at home by his grandparents. Patient received 4 mg of Narcan with significant improvement in respiratory mental status. Arrival, patient is AOx3 GCS 15 satting at 87%. Patient is now in no respiratory distress. Patient tells me that he took 30 mg of Percocet earlier today and passed out. Patient denies that this was a suicide attempt. Patient denies any active suicidal ideation, homicidal ideation, or acute hallucination. Patient has no other focal complaints at this time. Onset: earlier today Duration: once Location:home Severity:severe Review of Systems Narrative: Constitutional: No fever, no chills. HEENT: No vision changes CV: No chest pain, no palpitations PULM: no cough, no dyspnea. GI: No abdominal pain, no N/V/D. : No dysuria MSKEL: No muscle pain SKIN: No new rashes, no lesions. NEURO: No headache, no focal weakness. HEME: No visible bruises PSYCH: Normal mood PFSH ED PFSH: Medical History (Updated 01/20/21 @ 00:01 by ) Current non-nicotine vaping on some days Major depression, recurrent, chronic Opiate overdose Suicidal ideations Suicide attempt Social History Current gender identity: Male Physical Exam Narrative: EXAM NARRATIVE: Head: Atraumatic Eyes: PERRL, conjunctiva without injection ENT: Mucous membrane moist NECK: Supple, ROM intact LUNGS: LCTAB, no crackles/rhonchi CV: RRR ABDOMEN: Soft, nontender in all quadrants EXTREMITY: Normal ROM SKIN: No rash or erythema NEURO: Awake and alert, no focal motor deficits PSYCH: Normal mood and affect Course Vital Signs: Vital signs: Vital Signs Temperature 98.5 F 01/19/21 12:51 Pulse Rate 118 H 01/19/21 12:51 Respiratory Rate 20 H 01/19/21 12:51 Blood Pressure 133/82 01/19/21 12:51 Pulse Oximetry 99 01/19/21 13:04 MDM - General Adult MDM Narrative: Medical decision making narrative: Patient is a 20-year-old male with a history of opiate dependence who presents the emergency room for evaluation of after acute overdose with Percocet. Patient tells me that he took 30 mg of Percocet earlier today. On exam, patient appears to be satting at 8788% on room air with no increased work of breathing. Lungs appears to be clear. Did not show any signs of reexpansion pulmonary edema, or noncardiogenic pulmonary edema secondary to Narcan. Patient received oxygen and was observed in the emergency room with improvement in mental status. White count noted to be 15.7 likely reactive. No signs of trauma. Patient continues to be satting 87 to 89% on room air that improved to 95% on 8 L. Patient will need serial observation. Patient denies any SI/HI on multiple questioning. Rx narcan x2 Patient continues to be satting at 86% on RA that improves to 94% on 6L, will be admitted for serial evaluation for reexpansion pulmonary edema. Disposition: Admission Lab Data: Labs: Lab Results 01/17/21 01/17/21 01/17/21 21:50 21:50 21:50 WBC 15.7 10^3/uL H 10 ^3/uL (4.5-13.0) RBC 4.70 10^6/uL 10^6 /uL (4.1-5.3) Hgb 14.6 g/dL g/dL (11.7-16.6) Hct 40.9 % L % (42.0-52.0) MCV 87.0 fl fl (80-94) MCH 31.1 pg pg (28.0-34.0) MCHC 35.7 g/dL g/dL (30.0-36.0) RDW 12.0 % L % (12.1-15.1) Plt Count 268 10^3/cmm 10^3 /cmm (130-400) MPV 10.1 fL fL (7.4-10.4) Neut % (Auto) 86.0 % % Lymph % (Auto) 7.3 % % [place] % (Auto) 4.5 % % Eos % (Auto) 0.4 % % Baso % (Auto) 0.3 % % Neut # (Auto) 13.46 10^3/uL H 1 0^3/uL (1.8-8.0) Lymph # (Auto) 1.1 10^3/uL L 10^ 3/uL (1.5-6.5) [place] # (Auto) 0.7 10^3/uL 10^3/ uL (0.2-0.9) Eos # (Auto) 0.1 10^3/uL 10^3/ uL (0.0-0.8) Baso # (Auto) 0.0 10^3/uL 10^3/ uL (0.0-0.1) Nucleated RBC % (a uto) 0 % % Nucleated RBCs # 0.0 /100WBC /100W BC Specimen Type Sample Site ABG pH ABG pCO2 ABG pO2 ABG HCO3 ABG Base Excess Kelvin Test Hematocrit O2 Delivery Device O2 Liters/Min Preventive Medicine Specialist ID Sodium 135 mmol/L L mmol /L Cancelled (136-145) Potassium 3.5 mmol/L mmol/L Cancelled (3.5-5.1) Chloride 96 mmol/L L mmol/ L Cancelled (98-107) Carbon Dioxide 22 mmol/L mmol/L Cancelled (22-29) Anion Gap 20.5 H Cancelled (5-19) BUN 17 mg/dL mg/dL Cancelled (6-20) Creatinine 1.1 mg/dL mg/dL Cancelled (0.7-1.2) GFR Calculation 85.3 mL/min L mL/ min Cancelled (90-130) Glucose 153 mg/dL H mg/dL Cancelled (65-115) Calculated Osmolal ity 285 mOsm/kg mOsm/ kg Cancelled (285-295) Calcium 8.5 mg/dL mg/dL Cancelled (8.5-10.5) Iron 71 ug/dL ug/dL (59-158) TIBC 254 mcg/dl mcg/dl % Saturation 27.9 % % (20-50) Unsat Iron Binding 183 ug/dL ug/dL (112-347) Total Bilirubin 0.3 mg/dL mg/dL (0.15-1.2) AST 97 U/L H U/L (0-40) ALT 138 U/L H U/L (0-41) Alkaline Phosphata se 86 IU/L IU/L (40-130) Total Protein 6.8 g/dL g/dL (6.6-8.7) Albumin 4.3 g/dL g/dL (3.5-5.2) Globulin Cancelled Procalcitonin 0.05 ng/mL ng/mL (0-0.5) Urine Opiates Scre en Ur Barbiturates Sc reen Ur Phencyclidine S crn Ur Amphetamines Sc reen U Benzodiazepines Scrn Urine Cocaine Scre en U Marijuana (THC) Screen 01/17/21 01/17/21 23:21 23:41 WBC RBC Hgb Hct MCV MCH MCHC RDW Plt Count MPV Neut % (Auto) Lymph % (Auto) [place] % (Auto) Eos % (Auto) Baso % (Auto) Neut # (Auto) Lymph # (Auto) [place] # (Auto) Eos # (Auto) Baso # (Auto) Nucleated RBC % (a uto) Nucleated RBCs # Specimen Type Arterial Sample Site Radial, left ABG pH 7.37 (7.35-7.45) ABG pCO2 48.6 mmHg H mmHg (35-45) ABG pO2 79.4 mmHg L mmHg (80.0-100.0) ABG HCO3 27.9 mmol/L H mmo l/L (22-26) ABG Base Excess 1.7 mmol/L mmol/L (-2.0-2.0) Kelvin Test Pos Hematocrit 46.9 % % (42-52) O2 Delivery Device Nrb O2 Liters/Min 15.0 % % Preventive Medicine Specialist ID ellpe Sodium Potassium Chloride Carbon Dioxide Anion Gap BUN Creatinine GFR Calculation Glucose Calculated Osmolal ity Calcium Iron TIBC % Saturation Unsat Iron Binding Total Bilirubin AST ALT Alkaline Phosphata se Total Protein Albumin Globulin Procalcitonin Urine Opiates Scre en Negative ng/mL ng /mL (Negative) Ur Barbiturates Sc reen Negative ng/mL ng /mL (Negative) Ur Phencyclidine S crn Negative ng/mL ng /mL (Negative) Ur Amphetamines Sc reen Negative ng/mL ng /mL (Negative) U Benzodiazepines Scrn Negative ng/mL ng /mL (Negative) Urine Cocaine Scre en Negative ng/mL ng /mL (Negative) U Marijuana (THC) Screen Positive ng/mL H ng/mL (Negative) Imaging Data^: Other Imaging: Radiologist's impression: [address] [id number] ReportSigned Patient: Wu RodrigueztratiosUnit #: [id number]: [id number]#:[id number]/Sex: 20 / MADM Date: 01/17/21Loc: ERRoom/Bed:Attending Dr: Ordering Provider/Ordering MD: Juancho Jimenez MD Date of Service: 01/17/21 Procedure(s): XR chest 1V portable [id number] Accession Number(s): [id number] Report Number: [id number] PROCEDURE INFORMATION: Exam: XR Chest Exam date and time: 01/17/2021 9:05 PM Age: 20 years old Clinical indication: Dyspnea TECHNIQUE: Imaging protocol: XR of the chest. Views: 1 view. COMPARISON: CR XR chest 1V portable [id number] 07/20/2020 2:25 PM FINDINGS: The lungs are clear of infiltrate. There are no pleural effusions or pneumothorax. The heart size and pulmonary vascularity are normal. XR/XR chest 1V portable [id number] IMPRESSION: No active disease. Radiation Dose CTDIVOL = (mGy): DLP = (mGy-cm) Dictated By:Anthony Ozuna MDSigned By:Anthony Ozuna MDSigned Date/Time:01/17/21/ 04 Discharge Plan Discharge Patient Disposition: Admitted As Inpatient Admit Provider: Anabelle Winston Clinical Impression: Opiate overdose, Hypoxemia Condition: Stable Discharge Diet: Advance as tolerated Discharge Activity: Increase activity as tolerated Coding Level of Care Code ED Lapper for Jorge Coley
--- NOTE | 2021-01-17 23:09 | XRR_ITS ---
PROCEDURE INFORMATION: Exam: XR Chest Exam date and time: 01/17/2021 11:09 PM Age: 20 years old Clinical indication: Shortness of breath; Additional info: SOB TECHNIQUE: Imaging protocol: XR of the chest. Views: 1 view. COMPARISON: CR (CHEST, ) 01/17/2021 9:23 PM FINDINGS: Lungs: Patchy central ground-glass changes bilaterally in the suprahilar areas of both lungs. Pleural spaces: Unremarkable. No pleural effusion. No pneumothorax. Heart/Mediastinum: Unremarkable. No cardiomegaly. Vasculature: No vascular dilation. Bones/joints: Unremarkable. XR/XR chest 1V portable [id number] IMPRESSION: Hazy central airspace opacities in both lungs unchanged from prior imaging. This may represent a nonspecific pneumonitis or atypical pneumonia pattern. Radiation Dose CTDIVOL = (mGy): DLP = (mGy-cm)
[2021-01-17 23:29] LABS: ABG PCO2 48.6 mmHg (35-45); ABG PH Result 7.37 (7.35-7.45); Arterial Blood Gas Hematocrit 46.9 % (42-52); Base Excess ABG 1.7 mmol/L (-2.0-2.0); Blood Gas Allen Test Pos; Blood Gas Sample Site Radial, left; Blood Gas Sample Type Arterial; HCO3 ABG 27.9 mmol/L (22-26); Oxygen Device NRB; PO2 ABG 79.4 mmHg (80.0-100.0)
[2021-01-17 23:33] VITALS: BP 135/69; PULSE 89; RESP 16; O2SAT 94
--- NOTE | 2021-01-17 23:34 | CTR_ITS ---
PROCEDURE INFORMATION: Exam: CTA Chest With Contrast Exam date and time: 01/17/2021 11:34 PM Age: 20 years old Clinical indication: Shortness of breath; Patient HX: Od w hypoxia and SOB; Additional info: Evaluate for pe, hypoxia, dyspnea TECHNIQUE: Imaging protocol: Computed tomographic angiography of the chest with contrast. 3D rendering (Not supervised by radiologist): MIP and/or 3D reconstructed images were created by the technologist. Radiation optimization: All CT scans at this facility use at least one of these dose optimization techniques: automated exposure control; mA and/or kV adjustment per patient size (includes targeted exams where dose is matched to clinical indication); or iterative reconstruction. Contrast material: OMNI 350; Contrast volume: 65 ml; Contrast route: INTRAVENOUS (IV); COMPARISON: CR (CHEST, ) 01/17/2021 11:25 PM RADIATION DOSE METRICS: Total DLP (mGy-cm): 580.95 FINDINGS: Pulmonary arteries: Normal. No pulmonary emboli. Aorta: Unremarkable. No aortic aneurysm. No aortic dissection. Lungs: Patchy areas of consolidation in the posterior right upper lobe. Ground-glass attenuation changes of the parenchyma in the apical and posterior upper lobe segments with additional nodular ground-glass changes throughout both lower lobes. Negative for endobronchial obstruction. No bronchial wall thickening. Negative for bronchiectasis. No peripheral honeycombing. Pleural spaces: Unremarkable. No pneumothorax. No pleural effusion. Heart: Unremarkable. No cardiomegaly. No pericardial effusion. Lymph nodes: Unremarkable. No enlarged lymph nodes. Bones/joints: Unremarkable. No acute fracture. Soft tissues: Unremarkable. CT/CT angio chest PE protcl [id number] IMPRESSION: 1. Negative for pulmonary embolism. 2. Patchy bilateral predominantly ground-glass airspace disease. This may represent sequela of hypersensitivity pneumonitis, drug reaction, aspiration pneumonitis, or atypical infection. Pulmonary hemorrhage not excluded. Radiation Dose CTDIVOL = (mGy): DLP = 580.95 (mGy-cm)
[2021-01-18] VITALS (54 sets, daily range): BP systolic 83–138; BP diastolic 29–72; PULSE 88–128; RESP 13–26; TEMP 36.2–36.8; O2SAT 88–98; BMI 30.1
--- NOTE | 2021-01-18 00:04 | ECG_ITS ---
[facility] Test Date: 2021-01-18 Pat Name: Wu Rodriguez Department: Room: ICU10 Gender: Male Diesel Automotive Technician: : 2000 Requested By: Anabelle Winston Order Number: [id number] Kareen MD: Marcia Snow M.D. Measurements Intervals [place] Rate: 92 P: 56 DC: 141 QRS: 76 QRSD: 134 T: 28 QT: 378 QTc: 468 Interpretive Statements SINUS RHYTHM RIGHT BUNDLE BRANCH BLOCK [120+ ms QRS DURATION, UPRIGHT V1, 40+ ms S IN I/aVL/V4/V5/V6] Compared to ECG 07/20/2020 17:57:33 No significant changes Electronically Signed On 01-18-2021 15:55:16 KILN FURNITURE CASTER by Marcia Snow M.D. [id number]
--- NOTE | 2021-01-18 00:10 | P.HP_ITS ---
Providers/Chief Complaint Admitting Physician: Anabelle Winston MD Primary Care Provider: Everett Rojo MD Chief Complaint: ACCIDENTAL OVERDOSE History of Present Illness Wu Rodriguez is a 20 year old male presenting with recreational overdose of percocet tablets. States he does not recall how many pills he took, though earlier reported to ERP that he took 30mg worth. He was found down at home by his grandparents. Reportedly when family called 911, they were instructe d to perform CPR while awaiting EMS arrival due to noted shallow breathing and bradycardia. He received chest compressions by a family member. Upon EMS arrival, he received narcan x 4 which restored normal mentation. He was katie to ER awake, alert, oriented with stable VS except for low 02 saturation. His 02 sat noted to be 87-88% on RA, 02 needs fluctuating between 5-10lpm via oxymask. CXR was negative for PTX or acute events. Patient denies any dyspnea, states he is unable to take a deep breath however attributes this to soreness from recent CPR. No fever, chills. I turned him down from 15lpm on oxymask to 5lpm via NC, patient comfortbale, 02 sat 94-96%. Denies alcohol use, iv drug nose. Engages in vaping marijuana products frequently. Review of Systems General: Reports: 10 or more systems reviewed and unremarkable except in HPI and below Const: Denies: fever(s), chills or body aches Eyes: Denies: change in vision, blurry vision or photophobia ENMT: Reports: hoarseness; Denies: throat pain, enlarged tonsils, odynophagia or nasal congestion Card: Denies: chest pain, palpitations, irregular heart rhythm, edema, swelling of feet/ankles, lightheadedness, pre-syncope, dyspnea on exertion or orthopnea Resp: Denies: dyspnea, productive cough, non-productive cough, wheezing, stridor, pain on inspiration, change in phlegm color, hemoptysis or chest congestion GI: Denies: abdominal pain, nausea, vomiting, hematemesis, coffee ground emesis, dysphagia, heartburn, diarrhea, constipation, GI cramping, change in stool character, hematochezia or melena : Denies: flank pain, dysuria, urinary frequency, urinary urgency, urinary hesitancy or hematuria Musc: Denies: neck pain, back pain, extremity pain, joint swelling, joint warmth or deformity Neuro: Denies: headache(s), numbness in extremities, weakness in extremities, sensory changes, difficulty walking, frequent falls, dizziness, vertigo, behavioral changes, Slurred speech present or seizure-like activity Psych: Denies: anxiety, depression, suicidal ideation or homicidal ideation Endo: Denies: polyuria, polydipsia, tired all the time, cold intolerance or hot flashes Bharathi/Lymph: Denies: easy bruising or easy bleeding Medications/Allergies Home Medications Medication Instructions Recorded Confirmed Last Taken Type hydroxyzine pamoate 50 mg capsule 50 mg PO BID 05/28/19 07/20/20 07/20/20 History clonazepam 0.5 mg PO DAILY 07/20/20 07/20/20 Unknown History duloxetine 60 mg PO DAILY 07/20/20 07/20/20 07/20/20 History epinephrine See Rx Instructions .ROUTE .COMPLEX 07/20/20 07/20/20 Unknown History hydrocortisone See Rx Instructions .ROUTE .COMPLEX 07/20/20 07/20/20 Unknown History naproxen [Naprosyn] 500 mg PO BID PRN #20 tab 07/20/20 Unknown Rx quetiapine 25 mg PO DAILY 07/20/20 07/20/20 Unknown History trazodone 50 mg PO BEDTIME 07/20/20 07/20/20 Unknown History hydrocodone-acetaminophen 1 tab PO Q6H PRN #14 tab 08/20/20 Unknown Rx naloxone [Narcan] 4 mg INTRANASAL Q2M PRN #2 ea 01/17/21 Unknown Rx Allergies Allergy/AdvReac Type Severity Reaction Status Date / Time erythromycin base Allergy Unknown unknown Verified 08/20/20 08:36 Penicillins Allergy Unknown unknown Verified 08/20/20 08:36 Sulfa (Sulfonamide Allergy Unknown unknown Verified 08/20/20 08:36 Antibiotics) PFSH Acute PFSH: Social History Current gender identity: Male Vitals/I&O/Wt Last Vital Signs Temp 98.7 F 01/17/21 20:52 Pulse 104 H 01/17/21 21:03 Resp 18 01/17/21 21:03 BP 136/89 01/17/21 21:03 Pulse Ox 92 01/17/21 21:03 Weight last 48 hrs Weight 100.698 kg Physical Exam Narrative: EXAM NARRATIVE: General: No acute distress, AO x3 HEENT: PERRLA, pupils bilaterally equal and reactive, pallors not present Chest: Normal vesicular breath sounds, no added sounds, equal good air entry bilaterally CVS: S1-S2 regular, no murmurs, no tachycardia, no gallops, no rubs Abdomen: Soft, nontender, no organomegaly, bowel sounds present Neuro: No focal deficits, no facial deformity, AO x3, power 5/5 in all limbs Extremities: Healthy surgical dressing present on the right hip, mild tenderness, soft no erythema. Data : 01/17/21 21:50 01/17/21 21:50 Attestation for Other Data: I personally reviewed and interpreted the following: Other data: CXR reported normal however appears to have patchy GGOS on right side, repeat X ray has been ordered. A&P Assessment and plan (1) Opiate overdose: Status: Acute Qualifiers: Encounter type: initial encounter Injury intent: undetermined intent Qualified Code(s): T40.604A - Poisoning by unspecified narcotics, undetermined, initial encounter (2) Hypoxemia: Status: Acute Additional A&P Information Patient presenting with opiate overdose with recreational intent, has narcan spray at home but unable to self administer. found down, received brief CPR by family members, then received narcan x 4 after which mentation and vital signs at baseline Noted to have new hypoxia with 02 sat 87-88% on RA in spite of rastafari of normal mentation and breathing. CXR reported normal, however appears to have patchy pneumonitis on right side per my read. repeat CXR and also obtain CTA chest to exclude PE, pulmonary contusion, edema and/or pneumonitis. supplemental 02 to keep sat 92% check ABG incl CO level urine drug screen Attestations Medical Necessity Statement*: observation admission for above Coding Level of Care Code Acute Bump Grader Operator for Chg Fwd Diagnoses Opiate overdose T40.604A Encounter type: initial encounter Injury intent: undetermined intent Hypoxemia R09.02
[2021-01-18] MEDS: iohexol 350 mg/mL 100 mL Btl IV (00:35)
[2021-01-18 00:53] LABS: Amphetamines Screen Urine Negative (Negative); Barbiturates Screen Urine Negative (Negative); Benzodiazepines Screen Urine Negative (Negative); Cocaine Screen Urine Negative (Negative); Opiate Screen Urine Negative (Negative); PCP Screen Urine Negative (Negative); THC Screen Urine Positive (Negative)
[2021-01-18] MEDS: pantoprazole DR 40 mg Tablet PO (07:39)
[2021-01-18] MEDS: budesonide 0.5 mg/2 mL Neb INHALATION ×2 (10:04→20:03)
[2021-01-18] MEDS: ipratropium-albuterol 3 mL Neb INHALATION ×3 (10:04→20:03)
[2021-01-18 10:05] LABS: Basophils % 0.1 %; Eosinophils % 0.3 %; Hematocrit 40.6 % (42.0-52.0); Hemoglobin 13.9 g/dL (11.7-16.6); Lymphocytes # 1.2 10^3/uL (1.5-6.5); Mean Corpuscular HGB Conc 34.2 g/dL (30.0-36.0); Mean Corpuscular Volume 90.4 fl (80-94); Mean Platelet Volume 10.3 fL (7.4-10.4); Monocytes # 0.6 10^3/uL (0.2-0.9); Neutrophils # 11.01 10^3/uL (1.8-8.0); Neutrophils % 85.1 %; Nucleated Red Blood Cells % 0 %; Platelet Count 238 10^3/cmm (130-400); Red Blood Count 4.49 10^6/uL (4.1-5.3); Red Cell Distribution Width 12.1 % (12.1-15.1); White Blood Count 12.9 10^3/uL (4.5-13.0)
[2021-01-18] MEDS: FUROsemide 20 mg Tablet PO (10:27)
[2021-01-18] MEDS: quetiapine 25 mg Tablet PO (10:27)
[2021-01-18 10:34] LABS: SARS Covid-2 Antigen Negative (Negative)
[2021-01-18 11:06] LABS: Procalcitonin 0.05 ng/mL (0-0.5)
[2021-01-18 11:17] LABS: Albumin Level 4.3 g/dL (3.5-5.2); Alkaline Phosphatase 86 IU/L (40-130); Iron 71 ug/dL (59-158); Percent Saturation 27.9 % (20-50); Total Bilirubin 0.3 mg/dL (0.15-1.2); Total Iron Binding Capacity 254 mcg/dl; Total Protein 6.8 g/dL (6.6-8.7); Unsaturated Iron Binding 183 ug/dL (112-347)
[2021-01-18 11:56] LABS: Alanine Aminotransferase 138 U/L (0-41); Aspartate Amino Transferase 97 U/L (0-40)
[2021-01-18 12:40] LABS: Estmated Average Glucose 80; Hemoglobin A1C 4.4 % (4.0-6.0)
--- NOTE | 2021-01-18 12:44 | PM.PN ---
Subjective Subjective: Interval history: Admitted overnight. Today morning currently on room air satting 93%, tachycardic with heart rate going up to 110s. Awake alert. States he uses pain medications once a month for recreational use and usually has a Narcan spray with him but yesterday possibly the tablets were laced with fentanyl and he had a stronger reaction. He states he has had history of suicidal ideations in the past but this time it was only for recreational use. Denies any suicidal or homicidal ideations currently. Denies any difficulty in breathing usually. States that he does have a history of asthma but has been stable currently. States he vapes occasionally and has vape around 3 times the past 1 week. Vitals/I&O/Wt Last Vital Signs Temp 97.1 F L 01/18/21 12:00 Pulse 112 H 01/18/21 12:00 Resp 16 01/18/21 12:00 BP 97/56 01/18/21 12:00 Pulse Ox 93 01/18/21 12:00 01/17/21 01/18/21 01/18/21 22:59 06:59 14:59 Intake Total 950 / 950 Output Total 625 / 625 800 / 800 Balance -625 / -625 150 / 150 Weight last 48 hrs Weight 103.464 kg Weight 100.698 kg Physical Exam Narrative: EXAM NARRATIVE: General: No acute distress, AO x3, multiple intentional cut castro old healed present on left arm HEENT: PERRLA, pupils bilaterally equal and reactive Chest: Bilateral bronchial breath sounds, occasional rhonchi diffuse all over the lung hamm, equal good air entry bilaterally CVS: S1-S2 regular, no murmurs, no tachycardia, no gallops, no rubs Abdomen: Soft, nontender, no organomegaly, bowel sounds present Neuro: No focal deficits, no facial deformity, AO x3, power 5/5 in all limbs Data : 01/18/21 09:15 01/17/21 21:50 A&P Assessment and plan (1) Opiate overdose: States recreational. History of suicidal attempt in the past. Denies any active suicidal or homicidal ideation. Continue to monitor for respiratory decline. Continue to monitor vitals. Restart home Seroquel and trazodone. Consult psychiatry. Hydrocodone 5 mg every 12 as needed for pain to avoid withdrawal. Status: Acute Qualifiers: Encounter type: initial encounter Injury intent: undetermined intent Qualified Code(s): T40.604A - Poisoning by unspecified narcotics, undetermined, initial encounter (2) Hypoxemia: Status: Acute (3) Pneumonitis: Status: Acute Additional A&P Information Hypoxia: Most likely secondary to pneumonitis. CT appreciated. Pneumonitis most likely chemical in nature. Less likely infective. For now hold off on antibiotics. If patient's has fever then will add antibiotic. Sputum culture. Urinalysis, urine Legionella, bacterial antigen. COVID-19 PCR sent out. Isolation precautions. Solu-Medrol 40 mg every 8 hourly. Budesonide twice daily, DuoNeb every 6 hour. Possible cardiomegaly on chest CT: Lasix 20 mg oral once. Check echocardiogram. Full code. Regular diet. Lovenox for DVT prophylaxis. Attestations Medical Necessity Statement*: Requires further hospitalization for observation for opiate overdose, psychiatric evaluation, hypoxia secondary to pneumonitis Time Spent in Patient Care: Greater than 35 minutes (>than 50% of time spent in counselling and/or direct pt care on unit). Coding Level of Care Code Acute Core Assembly Supervisor for Jorge Coley Diagnoses Opiate overdose T40.604A Encounter type: initial encounter Injury intent: undetermined intent Hypoxemia R09.02 Pneumonitis J18.9
[2021-01-18 13:06] LABS: Alanine Aminotransferase 100 U/L (0-41); Albumin Level 3.8 g/dL (3.5-5.2); Alkaline Phosphatase 73 IU/L (40-130); Aspartate Amino Transferase 48 U/L (0-40); Blood Urea Nitrogen 12 mg/dL (6-20); Calcium 8.3 mg/dL (8.5-10.5); Carbon Dioxide 25 mmol/L (22-29); Chloride 92 mmol/L (98-107); Glomerular Filtration Rate 143.8 mL/min (90-130); Glucose 110 mg/dL (65-115); Potassium 3.6 mmol/L (3.5-5.1); Total Bilirubin 0.8 mg/dL (0.15-1.2); Total Protein 6.8 g/dL (6.6-8.7)
[2021-01-18 13:24] LABS: Anion Gap 20.6 (5-19); Osmolality Calculated 278 mOsm/kg (285-295); Sodium 134 mmol/L (136-145)
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
[2021-01-18] MEDS: duloxetine 60 mg Capsule PO (17:37)
--- NOTE | 2021-01-18 18:19 | NUR.SHIFT ---
Shift Note Frequent safety and comfort rounds continue. Orders and/or nursing care completed as indicated. Patient monitored for response to intervention and treatment also on side effects of vaping and lung damage Education provided includes[medication of steroids ]. Patient and/or outside sales account representative [ResponseToTeaching]. Will continue to monitor.
[2021-01-18] MEDS: trazodone 50 mg Tablet PO (20:43)
[2021-01-19] VITALS (18 sets, daily range): BP systolic 101–136; BP diastolic 46–82; PULSE 84–118; RESP 12–31; TEMP 36.2–36.9; O2SAT 91–99
[2021-01-19] MEDS: ipratropium-albuterol 3 mL Neb INHALATION ×2 (03:09→09:01)
[2021-01-19 05:03] LABS: Basophils % 0.2 %; Hematocrit 41.5 % (42.0-52.0); Hemoglobin 13.8 g/dL (11.7-16.6); Lymphocytes # 0.7 10^3/uL (1.5-6.5); Lymphocytes % 6.1 %; Mean Corpuscular HGB Conc 33.3 g/dL (30.0-36.0); Mean Corpuscular Hemoglobin 30.9 pg (28.0-34.0); Mean Corpuscular Volume 92.8 fl (80-94); Mean Platelet Volume 10.7 fL (7.4-10.4); Monocytes # 0.2 10^3/uL (0.2-0.9); Monocytes % 1.8 %; Neutrophils # 9.85 10^3/uL (1.8-8.0); Neutrophils % 91.6 %; Nucleated Red Blood Cells % 0 %; Platelet Count 236 10^3/cmm (130-400); Red Blood Count 4.47 10^6/uL (4.1-5.3); Red Cell Distribution Width 12.4 % (12.1-15.1); White Blood Count 10.8 10^3/uL (4.5-13.0)
[2021-01-19 05:25] LABS: Alanine Aminotransferase 94 U/L (0-41); Alkaline Phosphatase 74 IU/L (40-130); Anion Gap 14.4 (5-19); Aspartate Amino Transferase 32 U/L (0-40); Blood Urea Nitrogen 11 mg/dL (6-20); Calcium 9.2 mg/dL (8.5-10.5); Carbon Dioxide 27 mmol/L (22-29); Chloride 100 mmol/L (98-107); Glomerular Filtration Rate 143.8 mL/min (90-130); Glucose 145 mg/dL (65-115); Osmolality Calculated 286 mOsm/kg (285-295); Potassium 4.4 mmol/L (3.5-5.1); Sodium 137 mmol/L (136-145); Total Bilirubin 0.3 mg/dL (0.15-1.2)
[2021-01-19] MEDS: quetiapine 25 mg Tablet PO (07:54)
[2021-01-19] MEDS: duloxetine 60 mg Capsule PO (07:54)
[2021-01-19] MEDS: pantoprazole DR 40 mg Tablet PO (07:54)
[2021-01-19] MEDS: budesonide 0.5 mg/2 mL Neb INHALATION (09:01)
--- NOTE | 2021-01-19 09:27 | PC.CHAP ---
Pastoral Care Encounter/Spiritual Assessment Type of Contact [] Declined inbound customer service representative visit [] Patient/Family/Request visit [] Outpatient visit [] Follow-up visit [] Physician referral [] Code/Alert [x] Routine visit [] Staff referral [] Actively dying [] Patient sleeping [] Family support [] [] Out of room [] Palliative care [] [] Receiving care in room [] Pre-surgical visit [] Trauma [] Long length of stay [x] ICU visit [] Other: Relational/Emotional Strength [] Patient feels connected with others/family/visitors/staff [] Distress [] Loneliness/isolation [] Abandonment Spirituality of Patient [] Person of Kristine [] Attends Confucianism of their Kristine [] Believes in Prayer [] Reads Bible or Confucianist materials [] There are Spiritual issues to be addressed Aquatic Centre Manager Interventions [x] Prayer [x] Active listening [x] Non-anxious presence [x] Spiritual/emotional support [] Crisis/trauma care [] Spiritual counseling [] Bereavement support [] Provided bereavement packet [] Provided Bible/devotional materials [] Provided toy/stuffed animal, coloring book to patient or family member [] Provided Communion [] Anointing/[place] [] Salvation [x] Completed spiritual assessment [] Other: Impact on Illness or Injury [] Angry [] Fearful [] Anxious [] Often cries [] Exhaustion [] Unable to work [] Unable to attend scientology [] Unable to walk/stand [] Unable to read [] Unable to drive [] Unable to eat/drink [] Unable to sleep [] Unable to be with family [] Patient intubated [] Other: Summary recreational opioids ... has used for approx 8 years.. no addition.. student.. discussed a time to change out habits.. getting older and should not be playing with the possibility of addition... Time spent with patient 10 min
--- NOTE | 2021-01-19 09:57 | USCV_ITS ---
Wu Rodriguez Age: 20 Gender: M : 2000 Exam Date: 01/19/2021 06:29 Ordering Phys: Otf Schmitz MD Technologist: Laurence Blakely Exam Location: [facility] [place] Indication: CHR, CARDIOMEGALY BP: 118 / 63 HR: 81 Rhythm: Sinus Technical Quality: Adequate MEASUREMENTS (Male / Female) Normal Values 2D ECHO LV Diastolic Diameter PLAX 5.5 cm 4.2 - 5.9 / 3.9 - 5.3 cm LV Systolic Diameter PLAX 4.2 cm IVS Diastolic Thickness 1.0 cm 0.6 - 1.0 / 0.6 - 0.9 cm IVS Systolic Thickness 1.4 cm LVPW Diastolic Thickness 1.3 cm 0.6 - 1.0 / 0.6 - 0.9 cm LVPW Systolic Thickness 1.3 cm LVOT Diameter 2.0 cm LV Ejection Fraction 2D Teich 44.6 % LV Ejection Fraction MOD 2C 41.8 % LV Ejection Fraction 2C AL 47.4 % LA Diameter 2.5 cm LA Width 3.0 cm LA Height 4.1 cm RA Width 2.6 cm RA Height 4.3 cm Aorta at Sinotubular Diameter 2.5 cm M-MODE Aortic Annulus Diameter 2.7 cm LA Ao Ratio MM 1.0 MV E Point Septal Separation 0.6 cm DOPPLER AV Peak Velocity 126.0 cm/s LVOT Peak Velocity 94.0 cm/s AV Area Cont Eq vti 2.3 cm squared AV Area Cont Eq pk 2.3 cm squared MV Peak Velocity 118.0 cm/s MV Area PHT 4.3 cm squared Mitral E to A Ratio 2.0 MV E' Velocity 58.0 cm/s Mitral E to MV E' Ratio 6.8 Mitral E to LV E' Lateral Ratio 6.9 Mitral E to LV E' Septal Ratio 6.7 TR Peak Velocity 244.8 cm/s TR Peak Gradient 24.0 mmHg TR Mean Velocity 208.8 cm/s TR Mean Gradient 18.0 mmHg TR Velocity Time Integral 73.1 cm TV Peak E Velocity 57.0 cm/s Right Atrial Pressure 3.0 mmHg Pulmonary Artery Systolic Pressu 27.0 mmHg PV Peak Velocity 119.0 cm/s RV Acceleration Time 0.1 s RV Ejection Time 0.3 s RV AcT/ET 0.2 FINDINGS Left Ventricle Left ventricle is mildly dilated. LV systolic function is normal with EF of 50-55%. No regional wall motion abnormalities. Normal diastolic filling pattern. Right Ventricle The right ventricle is normal in size and function. Right Atrium The right atrium is normal in size. Left Atrium The left atrium is normal in size. Mitral Valve Mitral valve is thickened without significant stenosis or prolapse. There is trace mitral regurgitation. Aortic Valve Structurally normal aortic valve without significant sclerosis or stenosis. There is no aortic regurgitation. Tricuspid Valve Structurally normal tricuspid valve without significant stenosis. Trace tricuspid regurgitation. Insufficient TR jet to calculate RVSP Pulmonic Valve Structurally normal pulmonic valve without significant stenosis. There is no pulmonic regurgitation. Pericardium Normal pericardium without effusion. Aorta Normal ascending aorta dimension. CONCLUSIONS LV is mildly dilated LV systolic function is normal with EF of 50-55% Normal diastolic function Trace mitral regurgitation Trace tricuspid regurgitation No comparison studies available Zander Samuels MD (Electronically Signed) Final Date: 19 January 2021 09:10 S
--- NOTE | 2021-01-19 12:06 | PM.DCS ---
Discharge Providers Date of Admission: 01/18/21 07:31 Date of Discharge: January 19, 2021 Attending Provider at Admission: Anabelle Winston MD Attending Provider at Discharge: Rico Jackson Primary Care Provider: Everett Rojo MD Diagnoses at Discharge Discharge Diagnosis (1) Major depression, recurrent, chronic: Status: Acute (2) Opiate overdose: Status: Acute Qualifiers: Encounter type: initial encounter Injury intent: undetermined intent Qualified Code(s): T40.604A - Poisoning by unspecified narcotics, undetermined, initial encounter (3) Pneumonitis: Status: Acute (4) Hypoxemia: Status: Acute Reason for Visit Reason for Visit: ACCIDENTAL OVERDOSE Hospital Course Hospital Course 20-year-old gentleman with history of depression and PTSD was admitted for assessment following recreational overdose of Percocet with his grandparent having to initiate CPR prior to presentation. With past history of suicidal ideation he was assessed by psychiatry, but has not had suicidal ideation. Was cleared for discharge from their perspective. He was monitored in intensive care unit. Initially hypoxic, with no PE, but patchy bilateral groundglass airspace disease, possibly hypersensitive pneumonitis, drug reaction, aspiration rhinitis or atypical infection. Discussing with him he states he had snorted oxycodone in the past, although does not elaborate when was the most recent time. Discussed with him regarding avoidance of recreational drug use. He is encouraged to stop all use given severe and life-threatening adverse effects. Additionally he is encouraged to avoid inhalation of any substances, including vaping, although he states he has done it a few times by borrowing from friends, but does not vape himself. Options for rehabilitation were also offered to him by case management. Today he is feeling much better, he is weaned off oxygen entirely. He is saturating 96% on room air. He ate breakfast well. Denies any complaints. Feels ready for discharge. He states he follows with [facility] in [place] where he will be returning. He is asked to follow-up with his primary provider for reassessment following overdose, with for administration of CPR, as well as for reassessment of oxygenation, pneumonitis, which could be possibly secondary to aspiration during respiratory arrest and CPR, although cannot exclude other extrinsic causes. He is improving rapidly, although home O2 assessment is requested prior to discharge. Physical Exam Const: COMMON NORMALS: no acute distress and patient oriented x3 HENMT: COMMON NORMALS: oropharynx normal Neck/C-Spine: COMMON NORMALS: no JVD Resp: COMMON NORMALS: normal respiratory effort and clear to auscultation bilaterally AUSCULTATION: clear to auscultation bilaterally Cardio: COMMON NORMALS: no JVD, regular rhythm, S1 normal heart sound present, S2 normal heart sound present and No murmurs present (Cardio) RHYTHM: regular rhythm HEART SOUNDS: S1 normal heart sound present and S2 normal heart sound present GI: COMMON NORMALS: Normal to inspection, nondistended, normoactive bowel sounds present, Soft to palpation and non-tender PALPATION: Yes Soft to palpation Extremity: COMMON NORMALS: no joint enlargement and no pedal edema Neuro: COMMON NORMALS: patient oriented x3 and moves all extremities Skin: COMMON NORMALS: no rashes or lesions noted GENERAL SKIN EXAM: no rashes or lesions noted Discharge Data Data Completed and Pending: Completed Studies During Hospitalization Category Date Time Status CT angio chest PE protcl [id number] Urge nt Cat Scan 01/17/21 23:34 Completed XR chest 1V lindy ble [id number] Stat Exams 01/17/21 23:09 Completed XR chest 1V lindy ble [id number] Urgent Exams 01/17/21 21:05 Completed CV. echo complete * [id number] Routine Ultrasound 01/19/21 09:57 Completed Pending at discharge Category Date Time Status Arterial Blood Ga s Full Stat Lab 01/17/21 23:22 Ordered Bacterial Antigen Stat Lab 01/18/21 11:32 Ordered Coronavirus Test [facility] Clarisa ne Lab 01/18/21 07:35 Received Legionella Antige n STAT Routine Lab 01/18/21 11:32 Ordered MRSA by PCR Clarisa ne Lab 01/18/21 07:35 Received Sputum Culture an d Gram Stain Stat Lab 01/18/21 16:44 Results Urinalysis Routin e Lab 01/18/21 11:31 Ordered Labs from last 24 hours 01/19/21 01/19/21 01/18/21 04:01 04:01 09:15 WBC 10.8 RBC 4.47 Hgb 13.8 Hct 41.5 L MCV 92.8 MCH 30.9 MCHC 33.3 RDW 12.4 Plt Count 236 MPV 10.7 H Neut % (Auto) 91.6 Lymph % (Auto) 6.1 [place] % (Auto) 1.8 Eos % (Auto) 0.0 Baso % (Auto) 0.2 Neut # (Auto) 9.85 H Lymph # (Auto) 0.7 L [place] # (Auto) 0.2 Eos # (Auto) 0.0 Baso # (Auto) 0.0 Nucleated RBC % (a uto) 0 Nucleated RBCs # 0.0 Sodium 137 134 L Potassium 4.4 3.6 Chloride 100 92 L Carbon Dioxide 27 25 Anion Gap 14.4 20.6 H BUN 11 12 Creatinine 0.7 0.7 GFR Calculation 143.8 H 143.8 H Glucose 145 H 110 Estimat Average Gl ucose Hemoglobin A1c Calculated Osmolal ity 286 278 L Calcium 9.2 8.3 L Total Bilirubin 0.3 0.8 AST 32 48 H ALT 94 H 100 H Alkaline Phosphata se 74 73 Total Protein 7.0 6.8 Albumin 4.0 3.8 Globulin 3.0 3.0 Nasal/Oral COVID-1 9 PCR 01/18/21 01/18/21 09:15 07:35 WBC RBC Hgb Hct MCV MCH MCHC RDW Plt Count MPV Neut % (Auto) Lymph % (Auto) [place] % (Auto) Eos % (Auto) Baso % (Auto) Neut # (Auto) Lymph # (Auto) [place] # (Auto) Eos # (Auto) Baso # (Auto) Nucleated RBC % (a uto) Nucleated RBCs # Sodium Potassium Chloride Carbon Dioxide Anion Gap BUN Creatinine GFR Calculation Glucose Estimat Average Gl ucose 80 Hemoglobin A1c 4.4 Calculated Osmolal ity Calcium Total Bilirubin AST ALT Alkaline Phosphata se Total Protein Albumin Globulin Nasal/Oral COVID-1 9 PCR Pending Vitals: Last Vital Signs Temp 97.6 F 01/19/21 04:00 Pulse 102 H 01/19/21 09:03 Resp 18 01/19/21 09:03 BP 136/79 01/19/21 09:00 Pulse Ox 96 01/19/21 09:03 Discharge Plan Discharge Patient Disposition: Home Condition: Stable Prescriptions: New Narcan 4 mg/actuation spray,non-aerosol 4 mg intranasal Q2M PRN (Reason: opioid overdose) Qty: 2 RF: 0 Continued quetiapine 25 mg tablet 50 mg PO DAILY RF: 0 clonazepam 0.5 mg tablet 0.5 mg PO DAILY PRN (Reason: Anxiety) RF: 0 hydrocortisone 1 % Cream See Rx Instructions .ROUTE .COMPLEX RF: 0 duloxetine 60 mg capsule,delayed release(DR/EC) 60 mg PO DAILY RF: 0 epinephrine 0.1 mg/0.1 mL Auto-Injector 0.1 mg SUBCUT PRN PRN (Reason: Allergic Reaction) RF: 0 naproxen [Naprosyn] 500 mg tablet 500 mg PO BID PRN (Reason: pain) Qty: 20 RF: 0 Discharge Orders: Discharge Order (Routine); Ordered 01/19/21 Ordered By: Rico Jackson Referrals: Everett Rojo MD [Primary Care Provider] - 4-7 days Discharge Diet: Advance as tolerated Discharge Activity: Increase activity as tolerated Patient Instructions: Narcotic Use Disorder (GEN) Activity Restrictions/Additional Instructions: Please do not use recreational drugs including opioids. You are placing herself at risk of additional cardiopulmonary arrest, given even tablet for medications can have unknown admixtures including much stronger medications like fentanyl. Please educate your family or close friends who may be nearby in case of relapse on how to use Narcan to prevent from overdose. Seek medical attention immediately in case of any worsening of depression. Please follow-up with your primary doctor in 4-7 days for reassessment following overdose, with need for administration of CPR, as well as pneumonitis of unclear etiology. Have your primary doctor follow-up chest x-ray to assess for possible permanent lung damage or progressively worsening lung disease. Avoid at all costs any inhalation of substances due to risk of progressive lung damage, interstitial lung disease, hypoxia and progressive respiratory failure. Discussed with your primary doctor referral to opinion polls survey worker in case of persistent or worsening symptoms. Discharge Attestations Time Spent in Discharge Care*: greater than 30 min Quality Metrics Clinical Quality Measures During this hospital stay, did patient experience: None Coding Level of Care Code Acute [facility] note Diagnoses Major depression, recurrent, chronic F33.9 Opiate overdose T40.604A Encounter type: initial encounter Injury intent: undetermined intent Pneumonitis J18.9 Hypoxemia R09.02
--- NOTE | 2021-01-19 13:37 | PC.NURSE ---
Patient was taken via wheelchair to personal vehicle accompanied by partner at 1330. All belongings were taken with patient and all education was provided and patient understood.
[2021-01-19 16:32] LABS: Coronavirus Test Green County Not Detected
== END 2021-01-19 13:30 | disposition home or self-care (01) | DRG 918 ==
LOC: ER 23:18 → MEDSURG 23:24 → ICU 01-18 02:40 → MEDSURG 01-18 06:37
PROVIDERS: Student in an Organized Health Care Education/Training Program; Admitting Provider Student in an Organized Health Care Education/Training Program; Emergency Provider Emergency Medicine; PCP Family Medicine; Visit Provider Internal Medicine
DX: T40.694A Poisoning by other narcotics, undetermined, initial encounter (principal); J68.0 Bronchitis and pneumonitis due to chemicals, gases, fumes and vapors; F33.9 Major depressive disorder, recurrent, unspecified; U07.0 Vaping-related disorder; F43.10 Post-traumatic stress disorder, unspecified; F60.3 Borderline personality disorder
CPT/HCPCS: 36415; 36600; 71045; 71275; 80048; 80053; 80306; 82040; 82247; 82803; 83036; 83540; 83550; 84075; 84145; 84155; 84443; 84450; 84460; 85025; 87070; 87205; 87426; 87635; 87641; 93005; 93306; 94640; 99285; G0378; J2920; J7626; Q9967